=== PATIENT | male | born 1965 | race Caucasian/White ===

== ENCOUNTER 2021-01-21 08:54 | Emergency (ER) | payer OTHER ==
[~2021-01-21] VITALS: Ht 188 cm; Wt 147.0 kg
--- NOTE | 2021-01-21 09:01 | ED Chest Pain ---
General Chief Complaint: Chest Pain Stated Complaint: CHEST PAIN Source: patient Exam Limitations: no limitations History of Present Illness Date Seen by Provider: Jan 21, 2021 Time Seen by Provider: 09:01 Initial Comments Patient is a 55-year-old male who presents with left lower axillary chest wall pain rating to mid chest shoulder and neck. Symptoms have been for the past 2 days and are described as dull and throbbing. Chest pain is described as throbbing and is low-grade at baseline it is worse with deep breathing and movement and position pain change. No fever cough, sore throat. No nausea vomiting or sweats. He does report acid reflux. No abdominal pain. No leg pain or swelling. No history of DVT or PE. No other acute symptoms or complaints. Patient blood pressure 200/110. He states he is under increased stress and anxiety the past 2 days he has also been lifting more at work. He denies history of CAD or retention. He is a current smoker and his father of an ID at age 56. Timing/Duration: 1-3 hours Severity/Quality: mild Location: other Radiation: other Activities at Onset: other Prior CP/Workup: other Modifying Factors: improves with other Allergies and Home Medications Allergies Coded Allergies: Penicillins (Verified Allergy, Unknown, 01/21/21) Patient Home Medication List Home Medication List Reviewed: Yes Review of Systems Review of Systems Constitutional: see HPI EENTM: See HPI Respiratory: See HPI Cardiovascular: See HPI Gastrointestinal: See HPI Genitourinary: See HPI Musculoskeletal: see HPI Skin: see HPI Psychiatric/Neurological: See HPI Endocrine: See HPI Hematologic/Lymphatic: See HPI All Other Systems Reviewed Negative Unless Noted: Yes Physical Exam Vital Signs Vital Signs - First Documented 01/21/21 09:00 Temp 36.8 Pulse 72 Resp 20 B/P (MAP) 199/111 (140) O2 Delivery Room Air Capillary Refill : Height, Weight, BMI Height: '" Weight: lbs. oz. kg; BMI Method: General Appearance: No Apparent Distress, Anxious HEENT: PERRL/EOMI, TMs Normal, Pharynx Normal Neck: Full Range of Motion, Normal Inspection Respiratory: Chest Non Tender, Lungs Clear Cardiovascular: Regular Rate, Rhythm, No Edema Gastrointestinal: Non Tender, Soft Extremity: Normal Range of Motion, Non Tender, No Calf Tenderness Neurologic/Psychiatric: Alert, Oriented x3 Focused Exam Sepsis Stage: Ruled Out Respiratory: Chest Non Tender, Lungs Clear Cardiovascular: Regular Rate, Rhythm Skin: other Within 3hrs of presentation: Other Progress/Results/Core Measures Results/Orders Lab Results Laboratory Tests Test 01/21/21 09:10 01/21/21 11:42 Range/Units White Blood Count 8.5 4.3-11.0 10^3/uL Red Blood Count 5.55 H 4.30-5.52 10^6/uL Hemoglobin 16.5 13.3-17.7 g/dL Hematocrit 50 40-54 % Mean Corpuscular Volume 90 80-99 fL Mean Corpuscular Hemoglobin 30 25-34 pg Mean Corpuscular Hemoglobin Concent 33 32-36 g/dL Red Cell Distribution Width 12.8 10.0-14.5 % Platelet Count 138 130-400 10^3/uL Mean Platelet Volume 10.4 9.0-12.2 fL Immature Granulocyte % (Auto) 0 % Neutrophils (%) (Auto) 54 42-75 % Lymphocytes (%) (Auto) 36 12-44 % Monocytes (%) (Auto) 7 0-12 % Eosinophils (%) (Auto) 3 0-10 % Basophils (%) (Auto) 1 0-10 % Neutrophils # (Auto) 4.6 1.8-7.8 X 10^3 Lymphocytes # (Auto) 3.0 1.0-4.0 X 10^3 Monocytes # (Auto) 0.6 0.0-1.0 X 10^3 Eosinophils # (Auto) 0.3 0.0-0.3 10^3/uL Basophils # (Auto) 0.1 0.0-0.1 10^3/uL Immature Granulocyte # (Auto) 0.0 0.0-0.1 10^3/uL D-Dimer 0.26 0.00-0.49 UG/ML Sodium Level 141 135-145 MMOL/L Potassium Level 3.9 3.6-5.0 MMOL/L Chloride Level 102 98-107 MMOL/L Carbon Dioxide Level 29 21-32 MMOL/L Anion Gap 10 5-14 MMOL/L Blood Urea Nitrogen 10 7-18 MG/DL Creatinine 0.77 0.60-1.30 MG/DL Estimat Glomerular Filtration Rate 105 BUN/Creatinine Ratio 13 Glucose Level 130 H 70-105 MG/DL Calcium Level 9.6 8.5-10.1 MG/DL Corrected Calcium 8.5-10.1 MG/DL Total Bilirubin 0.4 0.1-1.0 MG/DL Aspartate Amino Transf (AST/SGOT) 12 5-34 U/L Alanine Aminotransferase (ALT/SGPT) 16 0-55 U/L Alkaline Phosphatase 108 40-136 U/L Troponin I < 0.30 <0.30 NG/ML Total Protein 7.4 6.4-8.2 GM/DL Albumin 4.7 H 3.2-4.5 GM/DL Urine Color YELLOW Urine Clarity CLOUDY Urine pH 7.0 5-9 Urine Specific [place] 1.020 1.016-1.022 Urine Protein NEGATIVE NEGATIVE Urine Glucose (UA) NEGATIVE NEGATIVE Urine Ketones NEGATIVE NEGATIVE Urine Nitrite NEGATIVE NEGATIVE Urine Bilirubin NEGATIVE NEGATIVE Urine Urobilinogen 0.2 < = 1.0 MG/DL Urine Leukocyte Esterase NEGATIVE NEGATIVE Urine RBC (Auto) NEGATIVE NEGATIVE Urine RBC RARE /HPF Urine WBC 0-2 /HPF Urine Squamous Epithelial Cells RARE /HPF Urine Crystals PRESENT H /LPF Urine Amorphous Sediment FEW DANTE PHOSPHATE H /LPF Urine Bacteria MODERATE H /HPF Urine Casts NONE /LPF Urine Mucus NEGATIVE /LPF Urine Culture Indicated NO My Orders Orders - MILNER,KATARZYNA DO Cbc With Automated Diff (01/21/21 09:01) Comprehensive Metabolic Panel (01/21/21 09:01) Troponin I Fs (01/21/21 09:01) Chest 1 View Ap/Pa Only (01/21/21 09:01) Ekg Tracing (01/21/21 09:01) Fibrin Degradation Products (01/21/21 09:01) Clonidine Tablet (Catapres Tablet) (01/21/21 09:30) Lorazepam Tablet (Ativan Tablet) (01/21/21 09:23) Nitroglycerin 0.4 Mg Btl 25's (Nitrostat (01/21/21 10:30) Famotidine Injection (Pepcid Injection) (01/21/21 11:00) Acetaminophen Tablet (Tylenol Tablet) (01/21/21 11:30) Antacid Suspension (Mylanta Suspension (01/21/21 11:30) Ua Culture If Indicated (01/21/21 11:44) Labetalol Injection (Normodyne Injection (01/21/21 12:30) Nitroglycerin Ointment (Nitrobid Ointme (01/21/21 12:30) Medications Given in ED Current Medications Medications Dose Ordered Sig/Durga Route Start Time Stop Time Status Last Admin Dose Admin Acetaminophen 1,000 mg ONCE ONCE PO 01/21/21 11:30 01/21/21 11:31 DC 01/21/21 11:35 1,000 MG Al Hydrox/Mg Hydrox/Simethicone 30 ml ONCE ONCE PO 01/21/21 11:30 01/21/21 11:31 DC 01/21/21 11:36 30 ML Clonidine HCl 0.2 mg ONCE ONCE PO 01/21/21 09:30 01/21/21 09:31 DC 01/21/21 09:31 0.2 MG Famotidine 20 mg ONCE ONCE IVP 01/21/21 11:00 01/21/21 11:01 DC 01/21/21 11:05 20 MG Nitroglycerin 1 TAB Q 5 MIN X 3 NEEDED PRN SL 01/21/21 10:30 01/21/21 11:23 0.4 MG Vital Signs/I&O 01/21/21 09:00 Temp 36.8 Pulse 72 Resp 20 B/P (MAP) 199/111 (140) O2 Delivery Room Air Departure Communication (Admissions) EKG: Normal sinus rhythm, no acute ST-T wave changes. Chest x-ray: No acute cardiopulmonary disease. Patient hypertensive and anxious in the ED. Clonidine, nitroglycerin x3, Ativan given with significant clinical improvement. Reports only residual low-grade chest tightness. Blood pressure improved to 150/90s. EKG, troponin negative. No recent cardiac or previous cardiac stress testing. Will admit to hospital for further evaluation and monitoring. Patient request transfer to [facility] Primary Impression: Chest pain Additional Impression: Accelerated hypertension Disposition: XF SHT-TRM HOSP Condition: Stable Transfer Transfer Reason: Exceeds level of care Time Spoke to Accepting Phy: 12:20 Transfer Progress Notes Patient accepted by Dr. Key Hatfield to [facility] Transfer Time: 12:26 Method of Transfer: EMS Departure-Patient Inst. Referrals: NO,LOCAL PHYSICIAN (PCP/Family) Primary Care Physician KATARZYNA MILNER DO Jan 21, 2021 09:01
[2021-01-21 09:14] LABS: HEMOGLOBIN 16.5 g/dL (13.3-17.7); MEAN CORPUSCULAR HEMOGLOBIN 30 pg (25-34); WHITE BLOOD COUNT 8.5 10^3/uL (4.3-11.0)
[2021-01-21 09:15] LABS: BASOPHILS % (AUTO) 1 % (0-10); EOSINOPHILS % (AUTO) 3 % (0-10); HEMATOCRIT 50 % (40-54); LYMPHOCYTES % (AUTO) 36 % (12-44); MEAN CORPUSCULAR HGB CONC 33 g/dL (32-36); MEAN CORPUSCULAR VOLUME 90 fL (80-99); MEAN PLATELET VOLUME 10.4 fL (9.0-12.2); MONOCYTES % (AUTO) 7 % (0-12); NEUTROPHILS % (AUTO) 54 % (42-75); PLATELET COUNT 138 10^3/uL (130-400)
--- NOTE | 2021-01-21 09:15 | Diagnostic Imaging Report ---
INDICATION: Chest pain. TIME OF EXAM: 8:53 AM No prior studies are available for comparison. Heart size is normal. Right hemidiaphragm is slightly elevated. There is some minimal linear atelectasis in both lung bases. Otherwise, the lungs are clear. No effusion or pneumothorax is detected. IMPRESSION: Minimal bibasilar subsegmental atelectasis. Dictated by: Dictated on workstation # [id number]
[2021-01-21 09:16] LABS: BASOPHILS # (AUTO) 0.1 10^3/uL (0.0-0.1); EOSINOPHILS # (AUTO) 0.3 10^3/uL (0.0-0.3); MONOCYTES # (AUTO) 0.6 X 10^3 (0.0-1.0); NEUTROPHILS # (AUTO) 4.6 X 10^3 (1.8-7.8)
[2021-01-21] MEDS ORDERED: LORazepam 0.5 MG (ATIVAN) TABLET PO STA (09:23)
[2021-01-21] MEDS ORDERED: cloNIDine 0.2 MG (CATAPRES) TAB PO ONE (09:30)
[2021-01-21 09:50] LABS: BUN/CREATININE RATIO 13; CARBON DIOXIDE 29 MMOL/L (21-32); CHLORIDE 102 MMOL/L (98-107); CREATININE SERUM 0.77 MG/DL (0.60-1.30); GFR ESTIMATED 105; POTASSIUM 3.9 MMOL/L (3.6-5.0); SODIUM 141 MMOL/L (135-145)
[2021-01-21 09:51] LABS: ALANINE AMINOTRANSFERASE 16 U/L (0-55); ALBUMIN 4.7 GM/DL (3.2-4.5); ALKALINE PHOSPHATASE 108 U/L (40-136); BILIRUBIN,TOTAL 0.4 MG/DL (0.1-1.0); CALCIUM 9.6 MG/DL (8.5-10.1); GLUCOSE 130 MG/DL (70-105); TOTAL PROTEIN 7.4 GM/DL (6.4-8.2)
[2021-01-21] MEDS: NITROGLYCERIN 0.4 MG SL TABS BTL 25'S SL PRN ×3 (10:23→11:23)
[2021-01-21] MEDS ORDERED: FAMOTIDINE 20MG/2ML IV (PEPCID) IVP ONE (11:00)
[2021-01-21] MEDS ORDERED: ANTACID SUSP 30 ML UDC (MYLANTA) PO ONE (11:30)
[2021-01-21] MEDS ORDERED: ACETAMINOPHEN 500 MG TAB (TYLENOL) PO ONE (11:30)
[2021-01-21 11:57] LABS: BILIRUBIN,URINE NEGATIVE (NEGATIVE); CLARITY,URINE CLOUDY; GLUCOSE, URINE (UA) NEGATIVE (NEGATIVE); KETONES,URINE NEGATIVE (NEGATIVE); LEUKOCYTE ESTERASE ,URINE NEGATIVE (NEGATIVE); NITRITE,URINE NEGATIVE (NEGATIVE); PROTEIN,URINE NEGATIVE (NEGATIVE)
[2021-01-21 12:10] LABS: BACTERIA,URINE MODERATE /HPF; COLOR,URINE YELLOW; RBC,URINE RARE /HPF; SQUAMOUS EPITHELIAL CELL,UR RARE /HPF; WBC,URINE 0-2 /HPF
[2021-01-21 12:11] LABS: AMORPHOUS SEDIMENT,UR FEW AMOR PHOSPHATE /LPF
[2021-01-21] MEDS ORDERED: LABETALOL HCL 20 MG/4 ML VIAL IV ONE (12:30)
[2021-01-21] MEDS ORDERED: NITROGLYCERIN 2% OINT 1 GM UNIT DOSE PACKET TOP ONE (12:30)
[2021-01-21] MEDS ORDERED: HEParin 1000 UNIT/ML (10ML VIAL) FOR BOLUS IV ONE (12:38)
[2021-01-21] MEDS ORDERED: HEParin DRIP 25000 UNIT/500ML 500 ML IV ONE (12:45)
[2021-01-21 13:15] LABS: INR 0.9 (0.8-1.4); PROTHROMBIN TIME PATIENT 12.4 SEC (12.2-14.7)
[2021-01-21] MEDS ORDERED: fentaNYL INJ 100 MCG/2 ML AMP IVP PRN (14:45)
[2021-01-21 19:10] VITALS: BP 144/71
== END 2021-01-21 19:28 | disposition short-term general hospital (02) ==
LOC: ER FS 08:56
DX: R07.9 Chest pain, unspecified (principal); I10 Essential (primary) hypertension; F17.200 Nicotine dependence, unspecified, uncomplicated
CPT/HCPCS: 36415; 71045; 80053; 81000; 84484; 85025; 85379; 85610; 85730; 93005; 96365; 96366; 96375